=== PATIENT | male | born 1990 | race Two or more races ===

== ENCOUNTER 2019-06-07 02:33 | Emergency (ER) | payer OTHER ==
[2019-06-07] MEDS ORDERED: Bupivacaine 0.5% 10 ML SDV INJECT ONE (02:54)
[2019-06-07] MEDS ORDERED: Lidocaine 1% with EPINEPHrine 1:100,000 20 ML MDV INJECT ONE (02:54)
[2019-06-07] MEDS ORDERED: Lactated Ringers 1,000 ML IV ONE (02:58)
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
--- NOTE | 2019-06-07 11:02 | CT ---
Head CT Technique: Multiple axial sections through the brain were obtained. Intravenous contrast was not utilized. Comparison: No prior intracranial imaging is available. Findings: Ventricles along with basal cisterns and sulci over the convexities are within normal limits for the patient's age. No abnormal parenchymal densities are seen. No evidence of intracranial hemorrhage. No midline shift or mass effect is seen. Mild soft tissue swelling is noted around the left orbit and within the left frontal scalp. Bone window settings were reviewed. Visualized paranasal sinuses and mastoid sinuses show nothing acute. No acute calvarial abnormality is appreciated. Impression: 1. Soft tissue swelling as noted above. 2. No acute intracranial abnormality is identified. Diagnostic code #2 This report was dictated in [place] Standard Time I agree with preliminary report from [facility], finalized on 06/07/19, 4:34 AM Central Time
== END 2019-06-07 06:45 ==
LOC: JD.ED 02:33
DX: S01.81XA Laceration without foreign body of other part of head, initial encounter (principal); F10.129 Alcohol abuse with intoxication, unspecified; Y90.8 Blood alcohol level of 240 mg/100 ml or more; Y04.0XXA Assault by unarmed brawl or fight, initial encounter
CPT/HCPCS: 12011; 36415; 70450; 80053; 80306; 80320; 83735; 84484; 85025; 93005; 96360; 99284; J3490; J7120; 93010; 99283; G0480